=== PATIENT | male | born 1975 ===

== ENCOUNTER 2017-01-09 12:47 | Day surgery (SDC) | payer MEDICAID ==
[2017-01-01 12:03] VITALS: BMI 36.9
[2017-01-09] MEDS ORDERED: Propofol 10 mg/ml Inj (20 ML) ONE ×3 (15:00→15:53)
[2017-01-09] MEDS ORDERED: Lidocaine 2% Inj (20ml) ONE (15:00)
[2017-01-09] MEDS ORDERED: Methylene Blue 10 mg/ml (1ml) Inj ONE (15:39)
[2017-01-09] MEDS ORDERED: Sodium Chloride 0.9% 1,000 ML IV SCH (16:30)
[2017-01-09 17:40] VITALS: BP 132/85; PULSE 94; RESP 20; TEMP 98; O2SAT 98
== END 2017-01-09 18:05 | disposition home or self-care (01) ==
LOC: ENDO 12:47
PROVIDERS: ATTEND Internal Medicine
DX: D12.0 Benign neoplasm of cecum (principal); K60.3 Anal fistula; D12.5 Benign neoplasm of sigmoid colon; K64.8 Other hemorrhoids; K22.70 Barrett's esophagus without dysplasia; K20.9 Esophagitis, unspecified; R73.03 Prediabetes; F41.9 Anxiety disorder, unspecified; F32.89 Other specified depressive episodes; J45.909 Unspecified asthma, uncomplicated; Z90.49 Acquired absence of other specified parts of digestive tract; Z82.49 Family history of ischemic heart disease and other diseases of the circulatory system; Z83.3 Family history of diabetes mellitus; Z80.0 Family history of malignant neoplasm of digestive organs; R19.4 Change in bowel habit
CPT/HCPCS: 43239; 45380; 45381; 45385; 82948; 88305; 88312; 88342; J2704; J3010; J7040 ×2; Q9968